=== PATIENT | male | born 1995 | race Hispanic/Latino ===

== ENCOUNTER 2020-08-18 19:59 | Emergency (ER) | payer SELFPAY ==
[~2020-08-18] VITALS: Ht 177.8 cm; Wt 104.3 kg
[~2020-08-18 19:59] MED LIST: PRILOSEC20 MG PO
== END 2020-08-18 22:44 | disposition home or self-care (01) ==
LOC: ED 19:59
DX: S93.401A Sprain of unspecified ligament of right ankle, initial encounter (principal); X50.9XXA Other and unspecified overexertion or strenuous movements or postures, initial encounter
CPT/HCPCS: 73590; 73610; 99283-25